=== PATIENT | female | born 1940 | race Caucasian/White ===

== ENCOUNTER 2017-02-02 06:06 | Day surgery (SDC) | payer MEDICARE, OTHER ==
[~2017-02-02 06:06] MED LIST: JANTOVEN5 MG PO; LOP25 PO; NEUR100 PO; RED YEAS1 PO; VITAMIN D31000 UNIT PO; ZESTORETIC1 TA1 PO
[2017-02-02 06:43] LABS: INTERNATIONAL NORMAL RATI 1.1 UNITS (-); PROTIME (NOT ORD) 13.8 SEC (12.0-14.5)
[2017-05-06] MEDS ORDERED: ULTRACET PO (15:04)
== END 2017-02-02 09:16 | disposition home or self-care (01) ==
LOC: SDC 06:06
PROVIDERS: Orthopaedic Surgery
PROC: 3E0R3BZ Introduction of Anesthetic Agent into Spinal Canal, Percutaneous Approach (ICD-10-PCS; 2017-02-02)
PROC: 3E0R33Z Introduction of Anti-inflammatory into Spinal Canal, Percutaneous Approach (ICD-10-PCS; principal; 2017-02-02 07:15)
DX: M54.16 Radiculopathy, lumbar region (principal); Z88.5 Allergy status to narcotic agent; Z87.891 Personal history of nicotine dependence; Z98.41 Cataract extraction status, right eye; Z98.42 Cataract extraction status, left eye; Z96.1 Presence of intraocular lens; I10 Essential (primary) hypertension; M19.90 Unspecified osteoarthritis, unspecified site; Z90.49 Acquired absence of other specified parts of digestive tract; Z98.890 Other specified postprocedural states
CPT/HCPCS: 85610; J1040; J2250; J3010; Q9967

== ENCOUNTER 2017-05-12 05:06 | Day surgery (SDC) | payer MEDICARE, OTHER ==
[~2017-05-12 05:06] MED LIST changes: +ULTRACET PO
[2017-05-12 05:47] LABS: INTERNATIONAL NORMAL RATI 1.1 UNITS (-)
== END 2017-05-12 08:58 | disposition home or self-care (01) ==
LOC: SDC 05:06
PROVIDERS: Orthopaedic Surgery
PROC: 3E0R3BZ Introduction of Anesthetic Agent into Spinal Canal, Percutaneous Approach (ICD-10-PCS; 2017-05-12)
PROC: B01BYZZ Fluoroscopy of Spinal Cord using Other Contrast (ICD-10-PCS; 2017-05-12)
PROC: 3E0R33Z Introduction of Anti-inflammatory into Spinal Canal, Percutaneous Approach (ICD-10-PCS; principal; 2017-05-12 07:00)
DX: M54.17 Radiculopathy, lumbosacral region (principal); Z98.41 Cataract extraction status, right eye; Z98.42 Cataract extraction status, left eye; Z98.890 Other specified postprocedural states; Z96.1 Presence of intraocular lens
CPT/HCPCS: 85610; J1040; J2250; J3010; Q9967

== ENCOUNTER 2017-08-24 05:17 | Day surgery (SDC) | payer MEDICARE, OTHER ==
[~2017-08-24] VITALS: Ht 170.2 cm; Wt 83.0 kg
[2017-08-24 05:49] LABS: INTERNATIONAL NORMAL RATI 1.1 UNITS (-); PROTIME (NOT ORD) 13.8 SEC (12.0-14.5)
== END 2017-08-24 08:17 | disposition home or self-care (01) ==
LOC: SDC 05:17
PROVIDERS: Orthopaedic Surgery
PROC: 3E0R3BZ Introduction of Anesthetic Agent into Spinal Canal, Percutaneous Approach (ICD-10-PCS; 2017-08-24)
PROC: B01BZZZ Fluoroscopy of Spinal Cord (ICD-10-PCS; 2017-08-24)
PROC: 3E0R33Z Introduction of Anti-inflammatory into Spinal Canal, Percutaneous Approach (ICD-10-PCS; principal; 2017-08-24 07:30)
DX: M54.16 Radiculopathy, lumbar region (principal); Z79.899 Other long term (current) drug therapy; Z87.891 Personal history of nicotine dependence; Z88.5 Allergy status to narcotic agent; Z90.49 Acquired absence of other specified parts of digestive tract; Z98.41 Cataract extraction status, right eye; Z98.42 Cataract extraction status, left eye; Z98.890 Other specified postprocedural states
CPT/HCPCS: 85610; J1040; J2250; J3010; Q9967